=== PATIENT | male | born 2000 | race Caucasian/White ===

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

== ENCOUNTER 2023-08-28 02:00 | Emergency (ER) | payer MEDICAID, OTHER ==
[2023-08-28 03:21] LABS: BASOPHILS ABSOLUTE AUTO 0.07 K/uL (0.00-0.10); BASOPHILS PERCENT AUTO 0.4 % (0.1-1.3); EOSINOPHILS ABSOLUTE AUTO 0.08 K/uL (0.00-0.40); EOSINOPHILS PERCENT AUTO 0.5 % (0.0-5.4); HEMATOCRIT 47.2 % (38.4-49.7); HEMOGLOBIN 17.2 g/dL (12.9-16.9); IMMATURE GRAN ABSOLUTE AUTO 0.19 K/uL (0.00-0.23); IMMATURE GRAN PERCENT AUTO 1.2 % (0.0-0.7); LYMPHOCYTES ABSOLUTE AUTO 2.81 K/uL (0.8-3.3); LYMPHOCYTES PERCENT AUTO 17.2 % (11.4-47.7); MEAN CORPUSCULAR HEMOGLOBIN 30.7 pg (31.6-35.5); MEAN CORPUSCULAR HGB CONC 36.4 g/dL (31.6-35.5); MEAN CORPUSCULAR VOLUME 84.3 fL (81.4-99.0); MONOCYTES ABSOLUTE AUTO 1.03 K/uL (0.20-0.90); MONOCYTES PERCENT AUTO 6.3 % (3.3-12.6); NEUTROPHILS ABSOLUTE AUTO 12.18 K/uL (1.0-7.6); NEUTROPHILS PERCENT AUTO 74.4 % (40.0-78.1); PLATELET COUNT,PLT 215 K/uL (130-375); WHITE BLOOD CELL COUNT,WBC 16.4 K/uL (3.2-11.0)
[2023-08-28 03:47] LABS: A/G RATIO 1.4 (1.2-2.2); ALANINE AMINOTRANSFERASE,ALT 48 U/L (12-78); ALBUMIN 4.6 g/dL (3.4-5.0); ALKALINE PHOSPHATASE 74 U/L (46-116); ASPARTATE AMNIOTRANSFERASE,AST 17 U/L (15-37); BILIRUBIN TOTAL 0.5 mg/dL (0.2-1.0); BLOOD UREA NITROGEN,BUN 14 mg/dL (7-18); CALCIUM 9.8 mg/dL (8.5-10.1); CARBON DIOXIDE,CO2 25 mmol/L (21-32); CHLORIDE,CL 100 mmol/L (100-108); CREATININE 1.2 mg/dL (0.8-1.3); EST CRCL DRUG DOSING (CG) 96.56 mL/min; ESTIMATED GFR 88 mL/min (>60); GLUCOSE RANDOM 94 mg/dL (74-106); POTASSIUM,K 3.6 mmol/L (3.6-5.2); SODIUM,NA 138 mmol/L (140-148)
[2023-08-28 03:49] LABS: ANION GAP 16.6 mmol/L (5.0-14.0)
[2023-08-28 04:09] LABS: APPEARANCE,URINE CLEAR (CLEAR); BILIRUBIN,URINE NEGATIVE (NEGATIVE); GLUCOSE,URINE NEGATIVE (NEGATIVE); KETONES,URINE NEGATIVE (NEGATIVE); LEUKOCYTE ESTERASE,URINE NEGATIVE (NEGATIVE); NITRITE,URINE NEGATIVE (NEGATIVE); OCCULT BLOOD,URINE NEGATIVE (NEGATIVE); PROTEIN,URINE NEGATIVE (NEGATIVE); UROBILINOGEN,URINE 0.2 EU/dL (0.2-1.0)
[2023-08-28 04:10] LABS: AMORPHOUS SEDIMENT,URINE NOT SEEN; BACTERIA,URINE RARE; COLOR,URINE OTHER (YELLOW); EPITHELIAL CELLS,URINE RARE; MUCUS,URINE RARE; RBC,URINE NOT SEEN (0-5); WBC,URINE NOT SEEN (0-5)
== END 2023-08-28 04:59 | disposition home or self-care (01) ==
LOC: JP.ED 02:00
DX: H53.8 Other visual disturbances (principal); F17.210 Nicotine dependence, cigarettes, uncomplicated; Z92.241 Personal history of systemic steroid therapy; Z79.899 Other long term (current) drug therapy
CPT/HCPCS: 36415; 80053; 81001; 85025; 99284

== ENCOUNTER 2023-10-02 22:20 | Emergency (ER) | payer SELFPAY ==
[2023-10-02] MEDS: Gabapentin 100 MG Cap PO ONE (22:58)
== END 2023-10-02 23:05 | disposition home or self-care (01) ==
LOC: JP.ED 22:20
DX: M54.41 Lumbago with sciatica, right side (principal); J45.909 Unspecified asthma, uncomplicated; F17.210 Nicotine dependence, cigarettes, uncomplicated; Z86.16 Personal history of COVID-19
CPT/HCPCS: 99283; A9270

== ENCOUNTER 2023-10-07 12:16 | Emergency (ER) | payer SELFPAY ==
[2023-10-07] MEDS: Cyclobenzaprine 10 MG Tab PO ONE (14:07)
[2023-10-07] MEDS: Ketorolac 30 MG/ML SDV IM ONE (14:08)
== END 2023-10-07 15:39 | disposition home or self-care (01) ==
LOC: JP.ED 12:16
DX: M54.41 Lumbago with sciatica, right side (principal); F17.210 Nicotine dependence, cigarettes, uncomplicated; Z86.16 Personal history of COVID-19
CPT/HCPCS: 96372; 99283; A9270; J1885

== ENCOUNTER 2024-04-17 10:30 | Day surgery (SDC) | payer MEDICAID ==
[2024-04-17] MEDS ORDERED: Propofol 200 MG/20 ML SDV ONE ×3 (10:53→13:08)
[2024-04-17] MEDS ORDERED: fentaNYL 100 MCG/2 ML SDV ONE (10:53)
[2024-04-17] MEDS ORDERED: Midazolam 1 MG/ML 2 ML SDV ONE (10:53)
[2024-04-17] MEDS: Lactated Ringers 1,000 ML IV SCH (11:29)
== END 2024-04-17 14:15 | disposition home or self-care (01) ==
LOC: JP.SDS 10:30
PROVIDERS: ATTEND Surgery
DX: R10.9 Unspecified abdominal pain (principal); K21.9 Gastro-esophageal reflux disease without esophagitis; J45.909 Unspecified asthma, uncomplicated
CPT/HCPCS: 43235; 45378; J2250; J2704; J3010; J7120

== ENCOUNTER 2024-04-20 20:29 | Emergency (ER) | payer MEDICAID ==
[2024-04-20 22:06] LABS: AMPHETAMINES SCREEN, URINE NEGATIVE (NEGATIVE); BARBITURATE SCREEN,URINE NEGATIVE (NEGATIVE); BENZODIAZEPINES SCREEN,URINE PRESUMPTIVE POSITIVE (NEGATIVE); METHADONE SCREEN, URINE NEGATIVE (NEGATIVE); METHAMPHETAMINES SCREEN, URINE NEGATIVE (NEGATIVE); OXYCODONE SCREEN,URINE NEGATIVE (NEGATIVE); PROPOXYPHENE SCREEN,URINE NEGATIVE (NEGATIVE); THC SCREEN,URINE 50 NG/ML PRESUMPTIVE POSITIVE (NEGATIVE)
[2024-04-20 22:31] LABS: BASOPHILS ABSOLUTE AUTO 0.08 K/uL (0.00-0.10); BASOPHILS PERCENT AUTO 1.1 % (0.1-1.3); EOSINOPHILS ABSOLUTE AUTO 0.26 K/uL (0.00-0.40); EOSINOPHILS PERCENT AUTO 3.6 % (0.0-5.4); HEMATOCRIT 44.1 % (38.4-49.7); HEMOGLOBIN 15.7 g/dL (12.9-16.9); IMMATURE GRAN ABSOLUTE AUTO 0.03 K/uL (0.00-0.23); IMMATURE GRAN PERCENT AUTO 0.4 % (0.0-0.7); LYMPHOCYTES ABSOLUTE AUTO 2.53 K/uL (0.8-3.3); LYMPHOCYTES PERCENT AUTO 34.8 % (11.4-47.7); MEAN CORPUSCULAR HEMOGLOBIN 32.5 pg (31.6-35.5); MEAN CORPUSCULAR HGB CONC 35.6 g/dL (31.6-35.5); MEAN CORPUSCULAR VOLUME 91.3 fL (81.4-99.0); MONOCYTES ABSOLUTE AUTO 0.41 K/uL (0.20-0.90); MONOCYTES PERCENT AUTO 5.6 % (3.3-12.6); NEUTROPHILS ABSOLUTE AUTO 3.96 K/uL (1.0-7.6); NEUTROPHILS PERCENT AUTO 54.5 % (40.0-78.1); PLATELET COUNT,PLT 194 K/uL (130-375); RED BLOOD CELL COUNT 4.83 M/uL (4.14-5.76); WHITE BLOOD CELL COUNT,WBC 7.3 K/uL (3.2-11.0)
[2024-04-20 22:55] LABS: A/G RATIO 1.1 (1.2-2.2); ALANINE AMINOTRANSFERASE,ALT 31 U/L (12-78); ALKALINE PHOSPHATASE 65 U/L (46-116); ANION GAP 10.4 mmol/L (5.0-14.0); ASPARTATE AMNIOTRANSFERASE,AST 19 U/L (15-37); BILIRUBIN TOTAL 0.2 mg/dL (0.2-1.0); BLOOD UREA NITROGEN,BUN 9 mg/dL (7-18); CALCIUM 8.4 mg/dL (8.5-10.1); CARBON DIOXIDE,CO2 29 mmol/L (21-32); CHLORIDE,CL 108 mmol/L (100-108); EST CRCL DRUG DOSING (CG) 119.64 mL/min; ESTIMATED GFR 109 mL/min (>60); GLUCOSE RANDOM 104 mg/dL (74-106); POTASSIUM,K 4.3 mmol/L (3.6-5.2); PROTEIN TOTAL,TP 7.6 g/dL (6.4-8.2); SODIUM,NA 147 mmol/L (140-148)
[2024-04-20] MEDS: Ibuprofen 400 MG Tab PO ONE (23:14)
[2024-04-20] MEDS: LORazepam 1 MG Tab PO ONE (23:16)
[2024-04-20] MEDS: diphenhydrAMINE 25 MG Cap PO ONE (23:16)
[2024-04-20] MEDS: Acetaminophen 500 MG Tab PO ONE (23:17)
[2024-04-20] MEDS: Nicotine Polacrilex 2 MG Gum ONE (23:17)
[2024-04-20] MEDS: NICOTINE POLACRILEX 4 MG CHEW PRN (23:17)
[2024-04-20] MEDS: Haloperidol 5 MG Tab PO ONE (23:17)
[2024-04-21] MEDS: Nicotine Polacrilex 2 MG Gum CHEW PRN (08:20)
[2024-04-21] MEDS ORDERED: Non-Formulary Medication 1 Each (Alprazolam [Xanax] 1 MG Tablet) PO PRN (10:46)
[2024-04-21] MEDS ORDERED: Non-Formulary Medication 1 Each (Albuterol Sulfate [Proair Respiclick] 90 MCG Aer.Pow.Ba) IH PRN (10:46)
[2024-04-21] MEDS ORDERED: Albuterol 6.7 GM Inhaler INH PRN (10:52)
[2024-04-21] MEDS: Sucralfate 1 GM Tab PO SCH (15:28)
[2024-04-21] MEDS: Pantoprazole 40 MG Tab.CR PO SCH (15:29)
[2024-04-21] MEDS: FLUoxetine 20 MG Cap PO SCH (15:29)
[2024-04-21] MEDS: Non-Formulary Medication 1 Each (Budesonide/Formoterol [Symbicort 160-4.5 Mcg Inhaler (6 G INH SCH (15:30)
[2024-04-21] MEDS: risperiDONE 1 MG Tab PO SCH (15:30)
[2024-04-21] MEDS: Non-Formulary Medication 1 Each (Omeprazole Magnesium [Prilosec Otc] 20 MG Tablet.Dr) PO SCH (15:31)
[2024-04-21] MEDS: Non-Formulary Medication 1 Each (Prazosin Hcl [Prazosin] 2 MG Capsule) PO SCH (15:31)
[2024-04-21] MEDS: Formoterol/Mometasone 200-5 MCG 8.8 GM Inhaler INH SCH (21:29)
[2024-04-21] MEDS: Methylphenidate 10 MG Tab PO SCH (21:30)
[2024-04-22] MEDS: ALPRAZolam 0.5 MG Tab PO PRN (06:29)
[2024-04-22] MEDS: risperiDONE 1 MG Tab PO SCH (09:50)
[2024-04-22] MEDS: Cyclobenzaprine 10 MG Tab PO PRN (09:54)
[2024-04-22] MEDS ORDERED: Prazosin 1 MG Cap PO SCH ×3 (12:00→21:00)
[2024-04-22] MEDS: Formoterol/Mometasone 200-5 MCG 8.8 GM Inhaler INH SCH (21:08)
[2024-04-22] MEDS: Prazosin 1 MG Cap PO SCH (21:08)
[2024-04-22] MEDS: Pantoprazole 40 MG Tab.CR PO SCH (21:10)
[2024-04-23] MEDS: risperiDONE 1 MG Tab PO SCH (09:01)
[2024-04-23] MEDS: FLUoxetine 20 MG Cap PO SCH (09:02)
[2024-04-23] MEDS: Acetaminophen 500 MG Tab PO PRN (15:11)
== END 2024-04-24 15:30 ==
LOC: JP.ED 20:29
DX: S51.811A Laceration without foreign body of right forearm, initial encounter (principal); Z86.16 Personal history of COVID-19; Z79.899 Other long term (current) drug therapy; Z88.8 Allergy status to other drugs, medicaments and biological substances; X78.1XXA Intentional self-harm by knife, initial encounter
CPT/HCPCS: 36415; 80053; 80143; 80179; 80305; 80307; 85025; 87428; 99285; A9270